=== PATIENT | female | born 1970 | race Caucasian/White ===

== ENCOUNTER 2018-07-22 08:07 | Emergency (ER) | payer OTHER ==
[2018-07-22] MEDS ORDERED: NA CHLORIDE 0.9% 1,000 ML ONE (08:25)
[2018-07-22] MEDS ORDERED: METHYLPREDNISOLONE 125 MG INJ ONE (08:25)
[2018-07-22] MEDS ORDERED: DIPHENHYDRAMINE 50 MG/ML VIAL ONE (08:25)
[2018-07-22] MEDS ORDERED: FAMOTIDINE 20 MG/2 ML VIAL IV ONE ×2 (08:25→08:51)
[2018-07-22] MEDS ORDERED: predniSONE 20 MG TAB ONE (08:51)
[2018-07-22] MEDS ORDERED: DEXAMETHASONE 10 MG/ML VIAL ONE (09:13)
[2018-07-22] MEDS ORDERED: EPINEPHRINE/PF 1 MG/ML AMP ONE (09:13)
[2018-07-22 09:38] LABS: Absolute Lymphocytes (CBC) 2.5 K/uL (0.7-4.9); Absolute Monocytes 0.4 K/uL (0.1-1.3); Absolute Neutrophil 4.8 K/uL (1.8-8.0); Basophils % 0.4 % (0-1.3); Eosinophils % 1.7 % (0-4.4); Hematocrit 40.6 % (36.0-45.0); Lymphocytes % 31.6 % (15.3-44.8); MPV 8.5 fL (7.6-11.3); RBC Red Blood Cell Count 4.38 M/uL (3.86-4.86)
--- NOTE | 2018-07-22 09:54 | ER ---
Nurse's Notes [facility] Name: Radha Henson Age: 47 yrs Sex: Female : 1970 Arrival Date: 07/22/2018 Time: 08:10 Bed 5 Private MD: None, None Diagnosis: Bee allergy status Presentation: 07/22 08:12 Presenting complaint: Patient states: stung by a bee on lower lip 15 minutes prior to ss arrival. Swelling noted to lower lip. Pt reportedly self medicated with 2 Benadryl tablets and ice to affected area. Transition of care: patient was not received from another setting of care. Onset: The symptoms/episode began/occurred suddenly. Anaphylaxis evaluation, angioedema. Onset of symptoms was July 22, 2018. Risk Assessment: Do you want to hurt yourself or someone else? Patient reports no desire to harm self or others. Initial Sepsis Screen: Does the patient meet any 2 criteria? HR > 90 bpm. Does the patient have a suspected source of infection? No. Patient's initial sepsis screen is negative. Care prior to arrival: None. 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 - Social history:: Smoking status: Patient/guardian denies using tobacco. - Ebola Screening: : Patient denies exposure to infectious person Patient denies travel to an Ebola-affected area in the 21 days before illness onset. - Family history:: not pertinent. Screenin:34 Abuse screen: Denies threats or abuse. Denies injuries from another. Nutritional iw screening: No deficits noted. Tuberculosis screening: No symptoms or risk factors identified. Fall Risk IV access (20 points). Assessment: 08:15 General: Appears in no apparent distress. Behavior is calm, cooperative. Pain: iw Complains of pain in mouth. Neuro: Level of Consciousness is awake, alert, obeys commands, Moves all extremities. Full function. Cardiovascular: Denies chest pain, palpitations, shortness of breath, Capillary refill < 3 seconds in bilateral fingers Patient's skin is warm and dry. Respiratory: Airway is patent Respiratory effort is even, unlabored, Breath sounds are clear bilaterally. Denies shortness of breath labored breathing. GI: Patient currently denies nausea, vomiting. Derm: Skin is intact, is healthy with good turgor, moderate swelling to lower lip. Musculoskeletal: Range of motion: intact in all extremities. 10:04 Reassessment: Patient appears in no apparent distress at this time. Patient and/or iw family updated on plan of care and expected duration. Pain level reassessed. Patient is alert, oriented x 3, equal unlabored respirations, skin warm/dry/pink. Patient states feeling better. Patient states symptoms have improved. Vital Signs: 08:16 BP 157 / 102; Pulse 92; Resp 19; Temp 97.5(TE); Pulse Ox 100% on R/A; Weight 122.47 kg; ss Height 6 ft. 0 in. (182.88 cm); Pain 0/10; 08:45 BP 135 / 96; Pulse 76; Resp 16 S; Pulse Ox 100% on R/A; iw 08:16 Body Mass Index 36.62 (122.47 kg, 182.88 cm) ED Course: 08:10 Patient arrived in ED. mr 08:10 Howard Duncan MD is Attending Physician. [facility] 08:10 Inserted saline lock: 20 gauge in right forearm, using aseptic technique. Blood iw collected. IV inserted by OFELIA De La Rosa. 08:11 None, None is Private Physician. mr 08:13 Clemencia Dueñas, RN is Primary Nurse. iw 08:15 Triage completed. ss 08:15 Patient has correct armband on for positive identification. iw 08:16 Arm band placed on right wrist. ss 10:36 No provider procedures requiring assistance completed. IV discontinued, intact, iw bleeding controlled, No redness/swelling at site. Pressure dressing applied. Administered Medications: 08:15 CANCELLED (Duplicate Order): Albuterol - atroVENT (3:1) (2.5 mg - 0.5 mg) 3 ml kizzy Nebulizer once 08:21 Drug: NS 0.9% 1000 ml Route: IV; Rate: 1 bolus; Site: right forearm; iw 08:21 Drug: Benadryl 50 mg Route: IVP; Site: right forearm; iw 08:23 Drug: SOLU-Medrol 125 mg Route: IVP; Site: right forearm; iw 08:25 Drug: Pepcid 40 mg Route: IVP; Site: right forearm; iw 08:45 Drug: predniSONE 60 mg Route: PO; iw 08:58 CANCELLED (Duplicate Order): EPINEPHrine 1mg/mL 1:1,000 0.3 ml Sub-Q once kizzy 09:08 Drug: Decadron - Dexamethasone 10 mg Route: IVP; Site: right forearm; iw 09:08 Drug: EPINEPHrine 1mg/mL 1:1,000 0.4 ml Route: Sub-Q; Site: right upper arm; iw Outcome: 09:52 Discharge ordered by . kizzy 10:36 Discharged to home ambulatory. iw 10:36 Condition: good 10:36 Discharge instructions given to patient, Instructed on discharge instructions, follow up and referral plans. medication usage, Demonstrated understanding of instructions, follow-up care, medications, Prescriptions given X 3, 4. 10:37 Patient left the ED. iw Signatures: Howard Duncan MD MD cha Rivera, Mary mr Clemencia Dueñas RN RN Tata Yates RN RN ss Corrections: (The following items were deleted from the chart) 08:36 08:15 Derm: Skin is intact, is healthy with good turgor, moderate swelling iw iw
--- NOTE | 2018-07-22 09:54 | EDPHYS ---
Physician Documentation [facility] Name: Radha Henson Age: 47 yrs Sex: Female : 1970 Arrival Date: 07/22/2018 Time: 08:10 Bed 5 Private MD: None, None ED Physician Howard Duncan HPI: 07/22 08:20 This 47 yrs old Female presents to ER via Ambulatory with complaints of Bee kizzy Sting, Allergic Reaction. 08:20 The patient presents with localized swelling. Onset: The symptoms/episode kizzy began/occurred just prior to arrival. Associated signs and symptoms: The patient has no apparent associated signs or symptoms. Possible causes: At home the patient or guardian has treated the symptoms with Benadryl. Severity of symptoms: At their worst the symptoms were mild in the emergency department the symptoms are unchanged. The patient has not experienced similar symptoms in the past. 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 - Social history:: Smoking status: Patient/guardian denies using tobacco. - Ebola Screening: : Patient denies exposure to infectious person Patient denies travel to an Ebola-affected area in the 21 days before illness onset. - Family history:: not pertinent. ROS: 08:20 Constitutional: Negative for fever, chills, and weight loss, Eyes: Negative for injury, kizzy pain, redness, and discharge, Neck: Negative for injury, pain, and swelling, Cardiovascular: Negative for chest pain, palpitations, and edema, Respiratory: Negative for shortness of breath, cough, wheezing, and pleuritic chest pain, Abdomen/GI: Negative for abdominal pain, nausea, vomiting, diarrhea, and constipation, Back: Negative for injury and pain, : Negative for injury, bleeding, discharge, and swelling, MS/Extremity: Negative for injury and deformity, Skin: Negative for injury, rash, and discoloration, Neuro: Negative for headache, weakness, numbness, tingling, and seizure, Psych: Negative for depression, anxiety, suicide ideation, homicidal ideation, and hallucinations, Allergy/Immunology: Negative for hives, rash, and allergies, Endocrine: Negative for neck swelling, polydipsia, polyuria, polyphagia, and marked weight changes, Hematologic/Lymphatic: Negative for swollen nodes, abnormal bleeding, and unusual bruising. 08:20 ENT: Positive for of the lower lip. Exam: 08:20 Constitutional: This is a well developed, well nourished patient who is awake, alert, kizzy and in no acute distress. Eyes: Pupils equal round and reactive to light, extra-ocular motions intact. Lids and lashes normal. Conjunctiva and sclera are non-icteric and not injected. Cornea within normal limits. Periorbital areas with no swelling, redness, or edema. ENT: Nares patent. No nasal discharge, no septal abnormalities noted. Tympanic membranes are normal and external auditory canals are clear. Oropharynx with no redness, swelling, or masses, exudates, or evidence of obstruction, uvula midline. Mucous membranes moist. Neck: Trachea midline, no thyromegaly or masses palpated, and no cervical lymphadenopathy. Supple, full range of motion without nuchal rigidity, or vertebral point tenderness. No Meningismus. Chest/axilla: Normal chest wall appearance and motion. Nontender with no deformity. No lesions are appreciated. Cardiovascular: Regular rate and rhythm with a normal S1 and S2. No gallops, murmurs, or rubs. Normal PMI, no JVD. No pulse deficits. Respiratory: Lungs have equal breath sounds bilaterally, clear to auscultation and percussion. No rales, rhonchi or wheezes noted. No increased work of breathing, no retractions or nasal flaring. Abdomen/GI: Soft, non-tender, with normal bowel sounds. No distension or tympany. No guarding or rebound. No evidence of tenderness throughout. Back: No spinal tenderness. No costovertebral tenderness. Full range of motion. Skin: Warm, dry with normal turgor. Normal color with no rashes, no lesions, and no evidence of cellulitis. MS/ Extremity: Pulses equal, no cyanosis. Neurovascular intact. Full, normal range of motion. Neuro: Awake and alert, GCS 15, oriented to person, place, time, and situation. Cranial nerves II-XII grossly intact. Motor strength 5/5 in all extremities. Sensory grossly intact. Cerebellar exam normal. Normal gait. Psych: Awake, alert, with orientation to person, place and time. Behavior, mood, and affect are within normal limits. 08:20 Head/face: Noted is swelling, that is moderate, of the lower lip. Vital Signs: 08:16 BP 157 / 102; Pulse 92; Resp 19; Temp 97.5(TE); Pulse Ox 100% on R/A; Weight 122.47 kg; ss Height 6 ft. 0 in. (182.88 cm); Pain 0/10; 08:45 BP 135 / 96; Pulse 76; Resp 16 S; Pulse Ox 100% on R/A; iw 08:16 Body Mass Index 36.62 (122.47 kg, 182.88 cm) ss MDM: 08:10 Patient medically screened. [facility] 08:26 Data reviewed: vital signs, nurses notes, lab test result(s). [facility] 07/22 08:13 Order name: CBC with Diff [facility] 07/22 08:13 Order name: Comprehensive Metabolic Panel [facility] Administered Medications: 08:15 CANCELLED (Duplicate Order): Albuterol - atroVENT (3:1) (2.5 mg - 0.5 mg) [address] [facility] Nebulizer once 08:21 Drug: NS 0.9% 1000 ml Route: IV; Rate: 1 bolus; Site: right forearm; iw 08:21 Drug: Benadryl 50 mg Route: IVP; Site: right forearm; iw 08:23 Drug: SOLU-Medrol 125 mg Route: IVP; Site: right forearm; iw 08:25 Drug: Pepcid 40 mg Route: IVP; Site: right forearm; iw 08:45 Drug: predniSONE 60 mg Route: PO; iw 08:58 CANCELLED (Duplicate Order): EPINEPHrine 1mg/mL 1:1,000 0.3 ml Sub-Q once [facility] 09:08 Drug: Decadron - Dexamethasone 10 mg Route: IVP; Site: right forearm; iw 09:08 Drug: EPINEPHrine 1mg/mL 1:1,000 0.4 ml Route: Sub-Q; Site: right upper arm; iw Disposition: 07/22/18 09:52 Discharged to Home. Impression: Bee allergy status. - Condition is Stable. - Discharge Instructions: Allergies, Adult, Bee, Wasp, or Hornet Sting, Adult, Allergies, [id number]. - Prescriptions for Benadryl 25 mg Oral Capsule - take 1 capsule by ORAL route every 6 hours As needed; 30 tablet. Pepcid 20 mg Oral Tablet - take 1 tablet by ORAL route every 12 hours for 10 days; 20 tablet. Prednisone 20 mg Oral Tablet - take 2 tablet by ORAL route once daily for 5 days; 10 tablet. EpiPen 0.3 mg Injection auto- injector - inject 1 pen by INTRAMUSCULAR route one time Inject into the outer portion of the thigh, through clothing if necessary. Indicated in the emergency treatment of allergic reactions; 1 Container. - Medication Reconciliation Form, Thank You Letter, Antibiotic Education, Prescription Opioid Use form. - Follow up: Private Physician; When: 1 - 2 days; Reason: Recheck today's complaints, Continuance of care, Re-evaluation by your physician. - Problem is new. - Symptoms have improved. Signatures: Dispatcher [employer] EDIA Howard Duncan MD MD cha Williams, Irene, RN RN iw Smirch, Shelby, RN RN ss Corrections: (The following items were deleted from the chart) 08:15 08:12 Albuterol - atroVENT (3:1) (2.5 mg - 0.5 mg) 3 ml Nebulizer once ordered. kizzy durand 08:58 08:53 EPINEPHrine 1mg/mL 1:1,000 0.3 ml Sub-Q once ordered. [facility] 10:37 09:52 07/22/2018 09:52 Discharged to Home. Impression: Bee allergy status. Condition is iw Stable. Discharge Instructions: Allergies, Adult, Bee, Wasp, or Hornet Sting, Adult, Allergies, [id number]. Prescriptions for Benadryl 25 mg Oral Capsule - take 1 capsule by ORAL route every 6 hours As needed; 30 tablet, Pepcid 20 mg Oral Tablet - take 1 tablet by ORAL route every 12 hours for 10 days; 20 tablet, Prednisone 20 mg Oral Tablet - take 2 tablet by ORAL route once daily for 5 days; 10 tablet, EpiPen 0.3 mg Injection auto-injector - inject 1 pen by INTRAMUSCULAR route one time Inject into the outer portion of the thigh, through clothing if necessary. Indicated in the emergency treatment of allergic reactions; 1 Container. and Forms are Medication Reconciliation Form, Thank You Letter, Antibiotic Education, Prescription Opioid Use. Follow up: Private Physician; When: 1 - 2 days; Reason: Recheck today's complaints, Continuance of care, Re-evaluation by your physician. Problem is new. Symptoms have improved. kizzy
[2018-07-22 09:57] LABS: Bilirubin Total 0.4 mg/dL (0.2-1.0); Potassium 4.2 mmol/L (3.5-5.1); Protein, Total 7.5 g/dL (6.4-8.2)
== END 2018-07-22 10:37 | disposition home or self-care (01) ==
LOC: ER 08:07
DX: R22.9 Localized swelling, mass and lump, unspecified (principal); W57.XXXA Bitten or stung by nonvenomous insect and other nonvenomous arthropods, initial encounter; Z88.5 Allergy status to narcotic agent; Z91.030 Bee allergy status; I10 Essential (primary) hypertension
CPT/HCPCS: 36415; 80053; 85025; 96372; 96374; 96375; 99284; J0171; J1100; J2930; J7030; J7512